=== PATIENT | male | born 1950 | race Caucasian/White ===

== ENCOUNTER 2020-03-12 09:11 | Emergency (ER) | payer OTHER, SELFPAY ==
[2020-03-12 09:29] VITALS: BP 148/96; PULSE 69; RESP 16; TEMP 36.4; O2SAT 99; BMI 30.2
--- NOTE | 2020-03-12 09:31 | ED.GENADULT ---
HPI - General Adult General Chief complaint: Animal Bite <Gonzalo Fountain NP - Last Filed: 03/12/20 10:13> Stated complaint: rabies shot <Gonzalo Fountain NP - Last Filed: 03/12/20 10:13> Time Seen by Provider: 03/12/20 09:31 <Gonzalo Fountain NP - Last Filed: 03/12/20 10:13> Source: patient <Gonzalo Fountain NP - Last Filed: 03/12/20 10:13> Mode of arrival: ambulatory <Gonzalo Fountain NP - Last Filed: 03/12/20 10:13> Limitations: no limitations <Gonzalo Fountain NP - Last Filed: 03/12/20 10:13> History of Present Illness HPI narrative: Cat bite to the palm of the left hand 3 days ago went to his primary care doctor today he was given tetanus however rabies vaccinations not available and was sent in for rabies vaccination. He has superficial abrasion like markings to the palm of the left hand 4 distinct areas. There is some slight scabbing but no overt erythema or swelling. He has full range of motion. No evidence of abscess or discharge. <Gonzalo Fountain NP - Last Filed: 03/12/20 10:13> Onset (ago): day(s) <Gonzalo Fountain NP - Last Filed: 03/12/20 10:13> Location: left and upper extremity <Gonzalo Fountain NP - Last Filed: 03/12/20 10:13> Treatments prior to arrival: other (Wound care) <Gonzalo Fountain NP - Last Filed: 03/12/20 10:13> Related Data Home medications: Previous Rx's Medication Instructions Recorded amoxicillin-pot clavulanate 1 tab PO Q12H 10 Days #20 tab 03/12/20 [Augmentin] <GIANFRANCO Salazar Last Filed: 03/12/20 10:13> Allergies/adverse reactions: Allergies Allergy/AdvReac Type Severity Reaction Status Date / Time dog dander [DOG DANDER] AdvReac Unknown ITCHY Unverified 11/15/19 16:46 <Gonzalo Fountain NP - Last Filed: 03/12/20 10:13> Review of Systems Review of Systems: Constitutional: No Weight loss, No Fever, No Chills, No Night Sweats, No Fatigue, No Malaise ENT/Mouth: No Hearing loss, No Ear Pain, No Nasal Congestion, No Sinus Pain, No Hoarseness, No sore throat, No Rhinorrhea, No Swallowing Difficulty Eyes: No Eye Pain, No Swelling, No Redness, No Foreign Body, No Discharge, No Vision Changes Cardiovascular: No Chest Pain Gastrointestinal: No abdominal Pain Musculoskeletal: No joint pain, No Myalgias, No Joint Swelling Skin: No Skin Lesions, No rash Neuro: No Weakness, No Numbness, No Paresthesias, No Loss of Consciousness, No Dizziness, No Headache Psych: No Social Issues Heme/Lymph: No Bruising, No Bleeding,No Lymphadenopathy Endocrine: No Polyuria, No Polydipsia, No Temperature Intolerance <Gonzalo Fountain NP - Last Filed: 03/12/20 10:13> Yes all other systems are reviewed and are negative <Gonzalo Fountain NP - Last Filed: 03/12/20 10:13> PMF Past Medical History Medical History: Medical History (Updated 03/13/20 @ 00:00 by Nancy Lira) GERD (gastroesophageal reflux disease) HTN (hypertension) <Gonzalo Fountain NP - Last Filed: 03/12/20 10:13> Physical Exam Vital Signs: Vital Signs: Last Vital Signs Temp 97.6 F 03/12/20 09:29 Pulse 69 03/12/20 09:29 Resp 16 03/12/20 09:29 BP 148/96 H 03/12/20 09:29 Pulse Ox 99 03/12/20 09:29 Body Mass Index 30.2 Reviewed <Gonzalo Fountain NP - Last Filed: 03/12/20 10:13> Vital Signs: Last Vital Signs Temp 97.6 F 03/12/20 09:29 Pulse 69 03/12/20 09:29 Resp 16 03/12/20 09:29 BP 148/96 H 03/12/20 09:29 Pulse Ox 99 03/12/20 09:29 Body Mass Index 30.2 <Nicholas Wilburn MD - Last Filed: 03/16/20 14:32> Const: General: cooperative and healthy appearing; No acute distress or intoxicated appearing <Gonzalo Fountain NP - Last Filed: 03/12/20 10:13> Nutritional Appearance: average body habitus <Gonzalo Fountain NP - Last Filed: 03/12/20 10:13> Orientation/consciousness: patient oriented x3 <Gonzalo Fountain NP - Last Filed: 03/12/20 10:13> HENMT: Head: Yes normal to inspection <Gonzalo Fountain NP - Last Filed: 03/12/20 10:13> Ears: hearing grossly normal bilaterally <Gonzalo Fountain NP - Last Filed: 03/12/20 10:13> Resp: Effort & Inspection: normal respiratory effort <Gonzalo Fountain NP - Last Filed: 03/12/20 10:13> Cardio: Jugular venous distension: no JVD <Gonzalo Fountain NP - Last Filed: 03/12/20 10:13> Rhythm: regular rhythm <Gonzalo Fountain NP - Last Filed: 03/12/20 10:13> Heart sounds: S1 normal heart sound present and S2 normal heart sound present <Gonzalo Fountain NP - Last Filed: 03/12/20 10:13> Skin: General skin exam: no rashes or lesions noted <Gonzalo Fountain NP - Last Filed: 03/12/20 10:13> Neuro: General: patient oriented x3 <Gonzalo Fountain NP - Last Filed: 03/12/20 10:13> Course Course Course Narrative: Interview 69-year-old male presenting with cat bite to the palmar aspect of the left hand seeking rabies vaccination he was given tetanus vaccination by his primary care doctor however rabies was not available. He will be given a rabies vaccination started on Augmentin for 10 days and will have close follow-up. He will be set up with short-stay surgery for the 3 subsequent scheduled vaccinations with a scheduled vaccination card provided to the patient. Signs or symptoms of infection clear reviewed with the patient and verbalized understanding. Comfortable plan. <Gonzalo Fountain NP - Last Filed: 03/12/20 10:13> I have discussed the case and management with the SHIRA <Nicholas Wilburn MD - Last Filed: 03/16/20 14:32> Discharge Plan Discharge Clinical Impression: Cat bite <Gonzalo Fountain NP - Last Filed: 03/12/20 10:13> Patient Disposition: Home, Self-Care <Gonzalo Fountain NP - Last Filed: 03/12/20 10:13> Instructions: Rabies Vaccine (By injection), Animal Bite (ED) <Gonzalo Fountain NP - Last Filed: 03/12/20 10:13> Additional Instructions: Warm compresses Ice Elevate Soap water wash twice a Day Take your antibiotics for full 10 days Have the remainder of the rabies vaccination cycle on outpatient basis at the short-stay surgery as follow-up provided if you have any concerns or unable to have these an outpatient basis please return to emergency room. Thank you Follow-up with: Per vaccinations cycle call to schedule appointments [facility] Short-stay surgery Address: [address] [place] [address] <Gonzalo Fountain NP - Last Filed: 03/12/20 10:13> Prescriptions: New amoxicillin-pot clavulanate [Augmentin] 875-125 mg tablet 1 tab PO Q12H 10 Days Qty: 20 RF: 0 <Gonzalo Fountain NP - Last Filed: 03/12/20 10:13> Interventions: ED Discharge Assessment Last Done: 03/12/20 11:21 <Gonzalo Fountain NP - Last Filed: 03/12/20 10:13> Discharge Date/Time: 03/12/20 11:24 <Gonzalo Fountain NP - Last Filed: 03/12/20 10:13>
[2020-03-12] MEDS: Rabies Vaccine (PCEC)/PF 1 ML VIAL IM (10:12)
[2020-03-12] MEDS: Rabies Immune Globulin/PF 1,500 UNIT/5 ML VIAL 2023.02 UNIT IM (10:23)
== END 2020-03-12 11:24 | disposition home or self-care (01) ==
PROVIDERS: Emergency Provider Emergency Medicine; PCP Internal Medicine
DX: S60.512A Abrasion of left hand, initial encounter (principal); W55.01XA Bitten by cat, initial encounter; I10 Essential (primary) hypertension; Y93.9 Activity, unspecified; Y92.9 Unspecified place or not applicable; Y99.9 Unspecified external cause status; Z20.3 Contact with and (suspected) exposure to rabies
CPT/HCPCS: 90375; 90471; 90675; 96372; 99283; 99284

== ENCOUNTER 2020-03-15 10:09 | Outpatient (REF) | payer OTHER, SELFPAY | END 2020-03-15 10:10 | disposition home or self-care (01) | LOC: HO.MDS 10:09 | PROVIDERS: Visit Provider Nurse Practitioner Primary Care | DX: Z29.14 Encounter for prophylactic rabies immune globulin (principal); S60.572D Other superficial bite of hand of left hand, subsequent encounter; W55.01XD Bitten by cat, subsequent encounter; Z20.3 Contact with and (suspected) exposure to rabies | CPT/HCPCS: 90471; 90675 ==

== ENCOUNTER 2020-03-19 15:00 | Outpatient (REF) | payer OTHER, SELFPAY | END 2020-03-19 15:01 | disposition home or self-care (01) | LOC: HO.MDS 15:00 | PROVIDERS: PCP Internal Medicine; Visit Provider Nurse Practitioner Primary Care | DX: Z29.14 Encounter for prophylactic rabies immune globulin (principal); S60.572D Other superficial bite of hand of left hand, subsequent encounter; W55.01XD Bitten by cat, subsequent encounter; Z20.3 Contact with and (suspected) exposure to rabies | CPT/HCPCS: 90471; 90675 ==

== ENCOUNTER 2020-03-26 15:49 | Outpatient (REF) | payer OTHER, SELFPAY | END 2020-03-26 15:50 | disposition home or self-care (01) | LOC: HO.MDS 15:49 | PROVIDERS: PCP Internal Medicine; Visit Provider Nurse Practitioner Primary Care | DX: Z29.14 Encounter for prophylactic rabies immune globulin (principal); S60.572D Other superficial bite of hand of left hand, subsequent encounter; W55.01XD Bitten by cat, subsequent encounter; Z20.3 Contact with and (suspected) exposure to rabies | CPT/HCPCS: 90675; 96372 ==

== ENCOUNTER 2021-01-26 14:07 | Outpatient (REF) | payer OTHER, SELFPAY ==
[2021-01-26 15:18] LABS: Influenza A PCR NEGATIVE (Negative); Influenza B PCR NEGATIVE (Negative); Resp Syncy Virus RNA Qual PCR NEGATIVE (Negative); SARS COV2 PCR INHOUSE NEGATIVE (Negative)
== END 2021-01-26 14:08 | disposition home or self-care (01) ==
LOC: HO.LNP 14:07
PROVIDERS: Visit Provider Internal Medicine
DX: Z20.822 Contact with and (suspected) exposure to COVID-19 (principal)
CPT/HCPCS: 0241U

== ENCOUNTER 2022-03-18 08:27 | Outpatient (REF) | payer OTHER, SELFPAY ==
[2022-03-18 10:32] LABS: MANUAL DIFF FLAG NO
[2022-03-18 10:33] LABS: Basophils Absolute Auto 0.1 X10*3/uL (0.0-0.2); Basophils Percent Auto 0.6 % (0-2); Eosinophils Absolute Auto 0.2 X10*3/uL (0.0-0.4); Eosinophils Percent Auto 2.8 % (0-4); Hematocrit 48.6 % (42.0-52.0); Hemoglobin 16.4 g/dl (14.0-18.0); Imm Gran Abs Auto 0.02 X10*3/uL (0.00-0.03); Imm Gran Pct Auto 0.2 % (0.0-0.4); Lymphocytes Absolute Auto 4.6 X10*3/uL (1.2-4.9); Lymphocytes Percent Auto 55.7 % (20-40); Mean Corpuscular HGB Conc 33.7 g/dl (31.0-36.0); Mean Corpuscular Hemoglobin 29.5 pg (27.0-33.0); Mean Corpuscular Volume 87.4 fL (80.0-98.0); Mean Platelet Volume 9.4 fL (9.4-12.4); Monocytes Absolute Auto 0.5 X10*3/uL (0.1-1.2); Monocytes Percent Auto 6.5 % (2-11); Neutrophils Absolute Auto 2.9 x10*3/uL (2.0-8.3); Neutrophils Percent Auto 34.2 % (45-73); Platelet Count 169 X10*3/uL (160-400); Red Blood Count 5.56 X10*6/uL (4.60-5.80); Red Cell Distribution Width 13.3 % (11.0-16.0); White Blood Count 8.3 X10*3/uL (4.8-10.8)
[2022-03-18 11:20] LABS: Alanine Aminotransferase 50 U/L (0-40); Albumin Level 4.2 g/dL (3.5-5.0); Alkaline Phosphatase 57 U/L (39-117); Anion Gap 12 (12-20); Aspartate Amino Transferase 28 U/L (5-37); Bilirubin Total 0.6 mg/dL (0.0-1.0); Blood Urea Nitrogen 18 mg/dL (9-16); Calcium 9.3 mg/dL (8.4-10.2); Carbon Dioxide 28 mmol/L (22-29); Chloride 103 mmol/L (96-108); Cholesterol 216 mg/dL; Estimated Glomerular Filt Rate 59; Glucose Fasting 116 mg/dL (60-99); HDL Cholesterol 44 mg/dL; LDL Cholesterol Calculated 146 mg/dl; Potassium 4.2 mmol/L (3.3-5.1); Sodium 139 mmol/L (135-145); Total Protein 6.9 g/dL (6.5-8.0); Triglycerides 130 mg/dL
[2022-03-18 11:28] LABS: Free T4 (Free Thyroxine) 0.87 ng/dL (0.71-1.85); Prostate Specific Antigen 0.56 ng/mL (<0.05-4.0); Thyroid Stimulating Hormone 2.42 uIU/mL (0.32-4.0)
== END 2022-03-18 08:28 | disposition home or self-care (01) ==
LOC: HO.10HDL 08:27
PROVIDERS: Visit Provider Internal Medicine
DX: Z00.00 Encounter for general adult medical examination without abnormal findings (principal); Z12.5 Encounter for screening for malignant neoplasm of prostate
CPT/HCPCS: 36415; 80053; 80061; 84153; 84439; 84443; 85025

== ENCOUNTER → 2022-03-18 08:55 | Outpatient (REF) | payer OTHER, SELFPAY ==
--- NOTE | 2022-03-18 09:00 | CA_ITS ---
Transthoracic Echocardiogram Patient (Last, First, Middle): Tommy Murray, Gender: Male Date of : 1950 Age: 71 Procedure Date: 03/18/2022 Procedure Type: Transthoracic Echocardiogram Location: OP Height: 182.88 cm Weight: 101.15 kg BSA: 2.23 m2 Heart Rate: bpm BP: 123 / 90 mmHg Injection Moulding Machine Operator: JESSICA Referring MD: Eduin Olvera MD Core Blower Operator: Albin Mccracken MD Symptoms: R00.2 PALPITATIONS I47.1 SVT Study Quality: Fair ECG Rhythm: Sinus Conclusions: - 1. Normal LV systolic function with mild LVH with impaired relaxation filling pattern 2. Normal cardiac valvular Doppler 3. Mildly dilated ascending aorta at 4 cm 4. No gross pericardial effusion Findings Left Ventricle Normal left ventricular size and systolic function. There is mildly increased left ventricular wall thickness. The visually estimated ejection fraction is between 55-60%. Spectral Doppler is indicative of an impaired relaxation filling pattern. E/E prime ratio is <8, consistent with normal filling pressures. Evidence suggests grade I (mild) diastolic dysfunction. Peak GLS is -17.1%, within normal limits Right Ventricle Normal right ventricular cavity size and systolic function. Atria The left atrium is normal in size. Interatrial shunt cannot be excluded. The right atrium is normal in size. Aortic Valve The aortic valve was not well visualized. There is no aortic valve stenosis. There is no aortic valve regurgitation. Mitral Valve Likely normal mitral valve structure and function. There is trace mitral valve regurgitation. There is no mitral valve stenosis. Pulmonic Valve The pulmonic valve was not well visualized. Tricuspid Valve The tricuspid valve was not well visualized. Tricuspid regurgitation envelope is inadequate for calculation of right ventricular systolic pressure. Normal right atrial pressure. Great Vessels The pulmonary artery was not well visualized. There is mild dilatation of the ascending aorta measuring 4.00 cm. Venous The inferior vena cava is normal in size and collapses greater than 50% with inspiration. Pericardium/Pleural There is no evidence of pericardial effusion. Prior Study Comparison No prior study available for comparison. Measurements 2D Linear Measurements IVSd: 1.27 0.6-0.9/0.6-1.0 cm LVIDd: 4.30 3.9-5.3/4.2-5.9 cm LVIDd Index: 1.93 2.4-3.2/2.2-3.1 cm/m2 LVIDs: 2.94 2.0-3.6 cm LVPWd: 1.34 0.7-1.1 cm LA Diam: 3.40 2.7-3.8/3.0-4.0 cm LAIDs Index: 1.52 1.5-2.3 cm/m2 LV Mass: 260.45 67-162/88-224 g LV Mass Index: 116.79 43-95/49-115 g/m2 LVOT Diam: 2.30 3.0+(-)1.3 cm 2D Systolic Function EF 4C: 57.30 >55% EF 2C: 59.70 >55% EF BiP: 59.00 >55% Mitral Valve MV Pk E: 0.47 MV PK A: 0.66 MV Decel Time: 324.00 E/A: 0.70 E'Lateral: 8.27 E'Medial: 5.55 E/E' Med: 8.40 E/E' Lat: 5.60 PHT: 95.00 MVA PHT: 2.32 Decel [place]: 1.44 Aortic Valve AoV Pk Dayo: 1.00 AoV Mn Dayo: 0.71 AoV VTI: 0.25 AoV Pk Grad: 4.00 Aov Mn Grad: 2.00 CHARLINE Cont.VTI: 3.29 LVOT LVOT Pk Dayo: 0.76 LVOT Mn Dayo: 0.51 LVOT VTI: 0.20 LVOT Pk Grad: 2.00 LVOT Mn Grad: 1.00 LVOT Diam: 2.30 LVOT Area: 4.15 Diastolic Function MV Pk E: 0.47 MV Pk A: 0.66 E/A: 0.70 E'Medial: 5.55 E/E' Med: 8.40 E' Laterial: 8.27 E/E' Lat: 5.60 Right Ventricle TAPSE (mm): 21.40 TVS' Dayo: 9.68 Great Vessels Aorta Sinus of Valsalva: 4.60 2.0-3.[address] [place]: 3.75 1.7-3.4 cm Ao Asc: 4.00 2.1-3.4 cm Updated in Other Vendor System with Status of Final Albin Mccracken MD electronically signed on 03/18/2022 4:31:11 PM with status of Final
== END ==
LOC: HO.CARD 08:55
PROVIDERS: PCP Internal Medicine; Visit Provider Internal Medicine
DX: R00.2 Palpitations (principal); I47.1 Supraventricular tachycardia
CPT/HCPCS: 93306; 93356

== ENCOUNTER 2023-03-01 13:39 | Outpatient (REF) | payer MEDICARE, SELFPAY ==
--- NOTE | ~2023-03-01 | US_ITS ---
EXAMINATION: US EXTRACRANIAL CAROTID DUPLEX, BILATERAL CLINICAL INFORMATION: Hypertension and left ear tinnitus. COMPARISON: None available. TECHNIQUE: Real-time ultrasound and Doppler techniques (integrating B-mode 2-D vascular images, Doppler spectral analysis and color-flow Doppler imaging) were utilized to interrogate the extracranial carotid arteries, the vertebral arteries and proximal subclavian arteries bilaterally. The degree of stenosis is determined by criteria similar to NASCET. FINDINGS: Right Side: 1. There is mild atherosclerotic plaque seen in the bifurcation/proximal ICA region. 2. The common carotid artery PSV proximally is 90 cm/s and distally 84 cm/s. 3. The proximal internal carotid artery velocities are 39 cm/s systolic and 13 cm/s diastolic. 4. The proximal external carotid artery PSV is 74 cm/s. 5. The vertebral artery shows antegrade flow. 6. The subclavian artery waveforms are normal. Left Side: 1. There is mild atherosclerotic plaque seen in the bifurcation/proximal ICA region. 2. The common carotid artery PSV proximally is 89 cm/s and distally 63 cm/s. 3. The proximal internal carotid artery velocities are 50 cm/s systolic and 13 cm/s diastolic. 4. The proximal external carotid artery PSV is 57 cm/s. 5. The vertebral artery shows antegrade flow. 6. The subclavian artery waveforms are normal. US/US carotid duplex BI IMPRESSION: 1. RIGHT: Minimal, non-hemodynamically significant stenosis of the proximal right internal carotid artery corresponding to a 0-49% stenosis by velocity criteria. 2. LEFT: Minimal, non-hemodynamically significant stenosis of the proximal left internal carotid artery corresponding to a 0-49% stenosis by velocity criteria.
== END 2023-03-01 13:40 | disposition home or self-care (01) ==
LOC: HO.US 13:39
PROVIDERS: PCP Internal Medicine; Visit Provider Internal Medicine
DX: I65.23 Occlusion and stenosis of bilateral carotid arteries (principal); I10 Essential (primary) hypertension; H83.12 Labyrinthine fistula, left ear
CPT/HCPCS: 93880